=== PATIENT | female | born 1985 | race Caucasian/White ===

== ENCOUNTER → 2016-12-29 | Outpatient (CLI) | payer BC ==
[~2016-12-29] MED LIST: ASCA500 PO; ASPI-435; PRENTAB26 PO
[2016-12-29 17:05] LABS: URINE APPEARANCE CLEAR (CLEAR); URINE BILIRUBIN NEG (NEG); URINE COLOR YELLOW; URINE EPITHELIAL CELL AUTO 20-30 /lpf (0-5); URINE NITRITE NEG (NEG); URINE PH 5.5 (4.5-7.5); URINE SPECIFIC GRAVITY 1.007 (1.000-1.030); UROBILINOGEN NEG (NEG)
[2016-12-29 17:15] LABS: MANUAL MICROSCOPIC REQUIRED? NO; REVIEW REQ? NO
== END | disposition home or self-care (01) ==
LOC: C.LABSPEC 16:21
PROVIDERS: ATTEND Obstetrics & Gynecology
DX: O30.041 Twin pregnancy, dichorionic/diamniotic, first trimester (principal)

== ENCOUNTER → 2016-12-31 | Outpatient (CLI) | payer BC ==
[2017-01-04 03:15] LABS: CHLAMYDIA TRACH RNA*** NOT DETECTED (NOT DETECTED); GC (NEIS GONORRHOEAE)RNA** NOT DETECTED (NOT DETECTED)
== END | disposition home or self-care (01) ==
LOC: C.LABSPEC 15:29
PROVIDERS: ATTEND Obstetrics & Gynecology
DX: O30.041 Twin pregnancy, dichorionic/diamniotic, first trimester (principal)

== ENCOUNTER → 2016-12-31 | Outpatient (CLI) | payer BC ==
[2016-12-31 14:38] LABS: BASO % 0.3 %; BASO ABS # 0.02 K/uL (0-0.2); COMPLETE YES; EOS % 0.8 %; HEMATOCRIT 41.8 % (37-47); IG% 0.1 %; LYMPH % 28.1 %; LYMPH ABS # 2.21 K/uL (1.2-3.4); MEAN CELL VOLUME 90.9 fL (80-100); MEAN CORPUSCULAR HGB CONC 35.2 g/dl (32-36); MEAN PLATELET VOLUME 10.3 fL (7.4-10.4); MONO % 10.8 %; NEUT % 59.9 %; PLATELET COUNT 296 K/uL (130-400); WHITE BLOOD COUNT 7.86 K/uL (4.8-10.8)
== END | disposition home or self-care (01) ==
LOC: C.LAB1850 12:43
PROVIDERS: ATTEND Obstetrics & Gynecology
DX: O30.041 Twin pregnancy, dichorionic/diamniotic, first trimester (principal)

== ENCOUNTER → 2017-02-28 | Outpatient (CLI) | payer BC ==
[2017-02-28 14:13] LABS: GTGD 50 Grams
== END | disposition home or self-care (01) ==
LOC: C.LAB1850 12:10
PROVIDERS: ATTEND Obstetrics & Gynecology
DX: O30.042 Twin pregnancy, dichorionic/diamniotic, second trimester (principal)

== ENCOUNTER → 2017-03-08 | Outpatient (CLI) | payer BC ==
[2017-03-08 08:13] LABS: PATIENT HEIGHT 170.2 cm
[2017-03-08 09:46] LABS: URINE TOTAL PROTEIN 8.3 mg/dl (0-11.9)
[2017-03-08 12:22] LABS: CREATININE 0.5 mg/dl (0.6-1.2)
== END | disposition home or self-care (01) ==
LOC: C.LAB1850 08:06
PROVIDERS: ATTEND Obstetrics & Gynecology
DX: O14.10 Severe pre-eclampsia, unspecified trimester (principal)

== ENCOUNTER → 2017-05-18 | Outpatient (CLI) | payer BC ==
[2017-05-18 11:25] LABS: URINE APPEARANCE CLEAR (CLEAR); URINE BILIRUBIN NEG (NEG); URINE COLOR YELLOW; URINE EPITHELIAL CELL AUTO >30 /lpf (0-5); URINE NITRITE NEG (NEG); URINE PH 7.5 (4.5-7.5); URINE SPECIFIC GRAVITY 1.017 (1.000-1.030); UROBILINOGEN NEG (NEG)
[2017-05-18 11:28] LABS: MANUAL MICROSCOPIC REQUIRED? NO; REVIEW REQ? NO
== END | disposition home or self-care (01) ==
LOC: C.LABSPEC 11:03
PROVIDERS: ATTEND Obstetrics & Gynecology
DX: O30.042 Twin pregnancy, dichorionic/diamniotic, second trimester (principal)

== ENCOUNTER → 2017-05-18 | Outpatient (CLI) | payer BC ==
[2017-05-18 12:18] LABS: HEMATOCRIT 36.6 % (37-47)
[2017-05-18 14:02] LABS: GTGD 50 Grams
== END | disposition home or self-care (01) ==
LOC: C.LAB1850 09:19
PROVIDERS: ATTEND Obstetrics & Gynecology
DX: O30.042 Twin pregnancy, dichorionic/diamniotic, second trimester (principal)

== ENCOUNTER 2017-06-15 16:22 | Outpatient (CLI) | payer BC ==
[~2017-06-15 16:22] MED LIST changes: -ASPI-435
== END 2017-06-15 17:01 | disposition home or self-care (01) ==
LOC: C.OPB 16:22 → C.LD 16:22 → C.OPB 17:01
PROVIDERS: ATTEND Obstetrics & Gynecology
DX: O30.009 Twin pregnancy, unspecified number of placenta and unspecified number of amniotic sacs, unspecified trimester (principal); Z3A.00 Weeks of gestation of pregnancy not specified

== ENCOUNTER 2017-06-22 14:50 | Outpatient (CLI) | payer BC ==
[~2017-06-22] VITALS: Ht 170.2 cm; Wt 101.0 kg
[2017-06-22 15:44] VITALS: Ht 170.2 cm; Wt 101.0 kg
[2017-06-22] MEDS ORDERED: ASPI-435 (15:44)
== END 2017-06-22 15:20 | disposition home or self-care (01) ==
LOC: C.OPB 14:50 → C.LD 14:50 → C.OPB 15:20
PROVIDERS: ATTEND Obstetrics & Gynecology
DX: O30.009 Twin pregnancy, unspecified number of placenta and unspecified number of amniotic sacs, unspecified trimester (principal); Z3A.00 Weeks of gestation of pregnancy not specified

== ENCOUNTER 2017-06-29 16:54 | Outpatient (CLI) | payer BC ==
[~2017-06-29] VITALS: Ht 170.2 cm; Wt 102.5 kg
[~2017-06-29 16:54] MED LIST changes: -ASCA500 PO; +ASPI-435
[2017-06-29 17:13] VITALS: Ht 170.2 cm; Wt 102.5 kg
== END 2017-06-29 17:32 | disposition home or self-care (01) ==
LOC: C.OPB 16:54 → C.LD 16:54 → C.OPB 17:32
PROVIDERS: ATTEND Obstetrics & Gynecology
DX: O30.009 Twin pregnancy, unspecified number of placenta and unspecified number of amniotic sacs, unspecified trimester (principal); Z3A.00 Weeks of gestation of pregnancy not specified

== ENCOUNTER 2017-07-05 11:45 | Outpatient (CLI) | payer BC | END 2017-07-05 12:46 | disposition home or self-care (01) | LOC: C.LD 11:45 → C.OPB 11:45 | PROVIDERS: ATTEND Obstetrics & Gynecology | DX: O30.043 Twin pregnancy, dichorionic/diamniotic, third trimester (principal); Z3A.00 Weeks of gestation of pregnancy not specified ==

== ENCOUNTER → 2017-07-05 | Outpatient (CLI) | payer BC | END | disposition home or self-care (01) | LOC: C.LABSPEC 13:50 | PROVIDERS: ATTEND Obstetrics & Gynecology | DX: O30.043 Twin pregnancy, dichorionic/diamniotic, third trimester (principal) ==

== ENCOUNTER 2017-07-12 18:50 | Outpatient (CLI) | payer BC ==
[~2017-07-12] VITALS: Ht 170.2 cm; Wt 102.8 kg
[2017-07-12 19:45] VITALS: Ht 170.2 cm; Wt 102.8 kg
== END 2017-07-12 19:30 | disposition home or self-care (01) ==
LOC: C.LD 18:50 → C.OPB 18:50
PROVIDERS: ATTEND Obstetrics & Gynecology
DX: O30.009 Twin pregnancy, unspecified number of placenta and unspecified number of amniotic sacs, unspecified trimester (principal); Z3A.00 Weeks of gestation of pregnancy not specified

== ENCOUNTER 2017-07-19 14:35 | Outpatient (CLI) | payer BC ==
[~2017-07-19] VITALS: Ht 170.2 cm; Wt 104.0 kg
[~2017-07-19 14:35] MED LIST changes: -ASPI-435
[2017-07-19 15:05] VITALS: Ht 170.2 cm; Wt 104.0 kg
== END 2017-07-19 14:55 | disposition home or self-care (01) ==
LOC: C.OPB 14:35 → C.LD 14:35 → C.OPB 14:55
PROVIDERS: ATTEND Obstetrics & Gynecology
DX: O30.009 Twin pregnancy, unspecified number of placenta and unspecified number of amniotic sacs, unspecified trimester (principal); Z3A.00 Weeks of gestation of pregnancy not specified

== ENCOUNTER 2017-07-22 15:15 | Outpatient (CLI) | payer BC ==
--- NOTE | 2017-07-27 13:11 | EDITING REQUIRED CODING QUERY ---
DIAGNOSIS NEEDED To promote full compliance with coding requirements relating to patient care, physician participation is requested in all cases of chemistry physics teacher uncertainty. Please assist us with the question(s) below: Coding Question: The patient received care in labor and delivery on 07/22/17 as noted within the record. Please document the diagnosis that is being addressed by the medication/treatment. Provider Response: DIAGNOSIS: Twin WEEKS OF GESTATION: 37 6/7 weeks Thank you for your assistance, Anne-Marie Hobbs - Health Promoter
== END 2017-07-22 15:45 | disposition home or self-care (01) ==
LOC: C.OPB 15:15 → C.LD 15:15 → C.OPB 15:45
PROVIDERS: ATTEND Obstetrics & Gynecology
DX: O30.003 Twin pregnancy, unspecified number of placenta and unspecified number of amniotic sacs, third trimester (principal); Z3A.37 37 weeks gestation of pregnancy

== ENCOUNTER 2017-07-26 12:11 | Outpatient (CLI) | payer BC | END 2017-07-26 12:56 | disposition home or self-care (01) | LOC: C.OPB 12:11 → C.LD 12:12 → C.OPB 12:56 | PROVIDERS: ATTEND Obstetrics & Gynecology | DX: O30.009 Twin pregnancy, unspecified number of placenta and unspecified number of amniotic sacs, unspecified trimester (principal); Z3A.00 Weeks of gestation of pregnancy not specified ==

== ENCOUNTER 2017-07-27 07:51 | Inpatient (IN) | payer BC ==
[~2017-07-27] VITALS: Ht 170.2 cm; Wt 104.5 kg
[2017-07-27] MEDS ORDERED: LACTATED RINGER'S 1000ML 500 ML IV PRN ×2 (08:11→13:55)
[2017-07-27] MEDS ORDERED: LACTATED RINGER'S 1000ML 1,000 ML IV PRN (08:11)
[2017-07-27] MEDS ORDERED: OXYTOCIN 30 UNITS/500ML NSS IV PRN ×2 (08:15→16:45)
[2017-07-27 08:46] LABS: HEMATOCRIT 39.8 % (37-47); MEAN CELL VOLUME 95.2 fL (80-100); MEAN CORPUSCULAR HEMOGLOBIN 32.1 pg (25-34); MEAN CORPUSCULAR HGB CONC 33.7 g/dl (32-36); MEAN PLATELET VOLUME 11.1 fL (7.4-10.4); PLATELET COUNT 173 K/uL (130-400); RED BLOOD COUNT 4.18 M/uL (4.2-5.4); WHITE BLOOD COUNT 7.36 K/uL (4.8-10.8)
[2017-07-27 09:16] VITALS: Ht 170.2 cm; Wt 104.5 kg
[2017-07-27] MEDS: LACTATED RINGER'S 1000ML 1,000 ML IV SCH ×2 (09:51→18:29)
[2017-07-27] MEDS ORDERED: BUPIVACAINE 0.25% 30 ML VIAL ONE (13:00)
[2017-07-27] MEDS ORDERED: EpHEDrine SULFATE INJ 50 MG/ML AMP ONE (13:00)
[2017-07-27] MEDS ORDERED: FENTANYL 2MCG/ML ROPIV 1.25MG/ML 100ML BAG EPI ONE (13:00)
[2017-07-27] MEDS ORDERED: FENTANYL CITRATE INJ 50 MCG/1 ML 2 ML VIAL ONE (13:01)
[2017-07-27] MEDS ORDERED: NALOXONE HCL INJ 1 MG in SODIUM CHLORIDE 0.9% 1000ML 1,000 ML IV PRN (13:55)
[2017-07-27] MEDS ORDERED: EpHEDrine SULFATE INJ 50 MG/ML AMP IV PRN (14:00)
[2017-07-27] MEDS ORDERED: NALOXONE HCL INJ 0.4 MG/1 ML VIAL/CARP IV PRN (14:00)
[2017-07-27] MEDS ORDERED: DiphenhydrAMINE HCL 50 MG/ML VIAL IV PRN (14:00)
[2017-07-27] MEDS ORDERED: ONDANSETRON INJ 2 MG/ML 2 ML VIAL IV PRN (14:00)
[2017-07-27] MEDS ORDERED: FENTANYL 2MCG/ML ROPIV 1.25MG/ML 100ML BAG EPI PRN (14:00)
[2017-07-27] MEDS ORDERED: NALBUPHINE HCL INJ 10 MG/ML AMP IV PRN (14:00)
[2017-07-27] MEDS ORDERED: OXYCODONE/ACETAMINOPHEN 5-325 TAB PO PRN (16:45)
[2017-07-27] MEDS ORDERED: BENZOCAINE 20% AER SPR 82.5 GM CAN EXT PRN (16:45)
[2017-07-27] MEDS ORDERED: LANOLIN OINT EXT PRN ×2 (16:45)
[2017-07-27] MEDS ORDERED: SUPERCREAM 0.870 % 15GM JAR EXT PRN (16:45)
[2017-07-27] MEDS ORDERED: HYDROCORTISONE ACETATE 25 MG SUPP PR PRN (16:45)
--- NOTE | 2017-07-27 16:49 | Anesthesia Procedure Note ---
Anesthesia Epidural Removal Nt Date & Time Jul 27, 2017 at 16:49 Notes Mental Status: alert / awake / arousable, participated in evaluation Nausea / Vomiting: adequately controlled Pain: adequately controlled Airway Patency, RR, SpO2: stable & adequate BP & HR: stable & adequate Hydration State: stable & adequate Neuraxial Anesthesia: was administered Anesthetic Complications: no major complications apparent, pt satisfied with anesthetic care Epidural: removed without complications, with tip intact
--- NOTE | 2017-07-27 17:55 | DELIVERY SUMMARY ---
DATE OF OPERATION: 07/27/2017 PREDELIVERY DIAGNOSES: 1. A 32-year-old G4, P1-1-1-2 at 38 weeks. 2. Dye-dye twins. 3. History of preeclampsia and prior but not currently. POSTDELIVERY DIAGNOSES: Same. PROCEDURES: Spontaneous vaginal delivery and repair of first degree perineal laceration. SURGEON: Dr. Tamela Arthur. ACCOUNT SUPPORT SPECIALIST SURGEON: Dr. Barron. ESTIMATED BLOOD LOSS: 300 mL. FINDINGS: Baby A is viable female , Apgars of 8 and 9, weight 5 pound 5 ounces; baby B is viable male , Apgars of 9 and 10, weight 8 pound 5 ounces. Baby A was delivered with compound left hand. ANESTHESIA: Epidural. DESCRIPTION OF DELIVERY: The patient progressed to complete with epidural anesthesia. She then began to push. She spontaneously vaginally delivered Baby A from the cephalic presentation with the baby delivered in left occiput anterior position with a compound left hand. At the time of delivery of the head, the head and the left arm were delivered followed by the delivery of the anterior shoulder followed by the delivered of the body. The cord was doubly clamped and cut. Baby was handed off to the waiting pediatrics team. Using ultrasound guidance, the baby B was noted to be in a cephalic presentation. Baby B's amniotic membranes were ruptured for clear fluid and the head was guided down into the pelvis. The patient then began to push again and spontaneously vaginally delivered a viable male from cephalic presentation with the head in right occiput anterior position. The head delivered followed by the anterior then the posterior shoulder followed by the body. The baby was placed in mother's abdomen and a spontaneous cry was heard. The cord was doubly clamped and cut after performing delayed cord clamping with 1 minute delay. The placenta of her baby A was delivered spontaneously intact with a 3-vessel cord. This was labeled with 1 cord clamp and sent to pathology. Baby B's placenta then delivered spontaneously intact with a 3-vessel cord and was labeled with 2 plastic cord clamps. Pitocin was started. The uterus and vagina were cleared of all clots and debris. The uterus began to clamp down. Excellent hemostasis was observed. The bladder was emptied using a red rubber catheter. A first degree perineal laceration was reapproximated using 3-0 Vicryl in a running stitch. The patient and both babies tolerated the delivery well and recovered back in the labor room in stable and good condition. All sponge, instrument and needle counts were correct x2 at the conclusion of the delivery. I attest to the content of the Intraoperative Record and any orders documented therein. Any exception s are noted below.
[2017-07-27 19:20] VITALS: BP 120/74; PULSE 90; TEMP 36.6
[2017-07-27] MEDS: DOCUSATE SODIUM 100 MG CAP PO SCH (21:13)
[2017-07-27 23:45] VITALS: BP 119/75; PULSE 97; TEMP 37.2
[2017-07-28 04:10] VITALS: BP 131/87; PULSE 81; TEMP 36.5
[2017-07-28] MEDS: IBUPROFEN 600 MG TAB PO PRN ×2 (04:34→08:16)
[2017-07-28 06:27] LABS: HEMATOCRIT 37.1 % (37-47)
--- NOTE | 2017-07-28 06:47 | Progress Note ---
Subjective Jul 28, 2017. Subjective conversation w/ patient, physical exam, chart review, lab review Ambulation: limited ambulation (to bathroom thus far) Voiding: no voiding problems Diet Tolerance: Regular Diet Lochia: Small Feeding Type: Breast Feeding Pain: Notes cramping with breast feeding Comment: Found pt resting comfortably, says got some sleep overnight, and denies any acute concerns. Review of Systems Constitutional: No fever, No chills Respiratory: No cough, No shortness of breath Cardiac: No chest pain Abdomen: No nausea, No vomiting, No diarrhea Female : No dysuria Objective Vital Signs Date Time Temp Pulse Resp B/P (MAP) Pulse Ox O2 Delivery O2 Flow Rate FiO2 07/28/17 04:10 36.5 81 18 131/87 (102) Room Air 07/27/17 23:45 37.2 97 18 119/75 (90) Room Air 07/27/17 23:45 Room Air 07/27/17 19:20 Room Air 07/27/17 19:20 36.6 90 18 120/74 (89) Room Air Physical Exam General Appearance: WELL-APPEARING, WD/WN, NO APPARENT DISTRESS Respiratory/Chest: lungs clear, normal breath sounds, no respiratory distress Cardiovascular: regular rate, rhythm, no murmur Abdomen: normal bowel sounds, non tender, soft Fundus: Firm, Non-Tender, Relation to Umbilicus (approx two down) Extremities: normal range of motion, no calf tenderness, + pedal edema (trace bilaterally) Laboratory Results Last 24 Hours Test 07/27/17 08:24 07/28/17 06:16 White Blood Count 7.36 K/uL Red Blood Count 4.18 M/uL Hemoglobin 13.4 g/dL 12.9 g/dL Hematocrit 39.8 % 37.1 % Mean Corpuscular Volume 95.2 fL Mean Corpuscular Hemoglobin 32.1 pg Mean Corpuscular Hemoglobin Concent 33.7 g/dl RDW Standard Deviation 49.9 fL RDW Coefficient of Variation 14.5 % Platelet Count 173 K/uL Mean Platelet Volume 11.1 fL Assessment and Plan Post- Day#: 1 Continue Routine Care: 32F s/p for di-di twins, now PPD #1. - Blood type O positive. GBS negative. Rubella immune. - Vital signs reviewed and stable. - Pain controlled with motrin. - No leg swelling or tenderness on calf palpation. Encourage ambulation. - Encourage breast feeding. - Hemoglobin pre-delivery 13.4, post-delivery 12.9. Bleeding has improved. Continue to monitor clinically. - Continue post-vaginal delivery care. - Pt agreed with above plan, all current questions answered. Kwame Gonzalez MD, PGY1 Military Logistics Specialist Physician Supervision Note: I was present with Dr. Gonzalez during the history and exam. I discussed the case with the resident and agree with the findings and plan as documented in the note. Any exceptions or clarifications are listed here: PPD#1 doing well. Routine care. Documented By: Tamela Arthur Resident Tracking Resident Involvement: Resident Care Provided Care Provided: OB Delivery (OB rounds)
[2017-07-28 07:40] VITALS: BP 116/78; PULSE 91; TEMP 36.8; O2SAT 98
[2017-07-28 07:48] VITALS: O2SAT 98
[2017-07-28] MEDS ORDERED: PRENATAL VITAMIN TAB PO SCH (08:00)
--- NOTE | 2017-07-28 08:13 | Medical Student: [facility] ---
Med Student [facility] Progress Nt Date of Service Jul 28, 2017. Subjective conversation w/ patient, conversation w/ family, physical exam, chart review, lab review, review of studies, review of inpatient medication list Ambulation: limited ambulation (to and from bathroom, not around hallways yet) Voiding: no voiding problems Passing Gas: Yes Diet Tolerance: Regular Diet Lochia: Small Feeding Type: Breast Feeding Pain: "discomfort" in pelvic area Notes: Speaking with Mrs. Oneal this morning, she reports "feeling fine," and pleased with the amount of sleep that she got. She reports a small amount of vaginal bleeding that has improved since yesterday, but "picks up" when she breastfeeds. She was educated that this is not unusual. Review of Systems Constitutional: No fever, No chills Respiratory: No cough, No wheezing, No shortness of breath Cardiac: No chest pain, No edema Abdomen: No pain, No nausea, No vomiting Female : + problem reported (pelvic discomfort and small amount of vaginal bleeding), No dysuria Objective Vital Signs Date Time Temp Pulse Resp B/P (MAP) Pulse Ox O2 Delivery O2 Flow Rate FiO2 07/28/17 07:48 98 Room Air 07/28/17 07:40 36.8 91 18 116/78 (91) 98 Room Air 07/28/17 04:10 36.5 81 18 131/87 (102) Room Air 07/27/17 23:45 37.2 97 18 119/75 (90) Room Air 07/27/17 23:45 Room Air 07/27/17 19:20 Room Air 07/27/17 19:20 36.6 90 18 120/74 (89) Room Air Physical Exam General Appearance: WELL-APPEARING, WD/WN Respiratory/Chest: lungs clear, normal breath sounds Cardiovascular: regular rate, rhythm, no gallop, no murmur Abdomen: non tender, soft Fundus: Non-Tender, Relation to Umbilicus (2 fingers below umbilicus) Extremities: no calf tenderness, + pertinent finding (slight bilateral Lower extremity edema) Blood Type: O positive Rubella: Immune GBS: negative Afebrile Laboratory Results Last 24 Hours Test 07/27/17 08:24 07/28/17 06:16 White Blood Count 7.36 K/uL Red Blood Count 4.18 M/uL Hemoglobin 13.4 g/dL 12.9 g/dL Hematocrit 39.8 % 37.1 % Mean Corpuscular Volume 95.2 fL Mean Corpuscular Hemoglobin 32.1 pg Mean Corpuscular Hemoglobin Concent 33.7 g/dl RDW Standard Deviation 49.9 fL RDW Coefficient of Variation 14.5 % Platelet Count 173 K/uL Mean Platelet Volume 11.1 fL Medications Current Inpatient Medications Medications (Trade) Dose Ordered Sig/Miguel Route Start Time Stop Time Status Last Admin Dose Admin Lactated Ringer's 1,000 ml @ 125 mls/hr Q8H IV 07/27/17 08:11 07/29/17 08:10 07/27/17 18:29 125 MLS/HR Lactated Ringer's 500 ml @ 999 mls/hr Q31M PRN IV 07/27/17 08:11 08/26/17 08:10 Oxytocin (Pitocin IV) 30 units UD PRN IV 07/27/17 16:45 08/26/17 16:44 07/27/17 18:34 30 UNITS Benzocaine (Dermoplast Aero Spr) 1 appln PRN PRN EXT 07/27/17 16:45 08/26/17 16:44 07/27/17 19:34 1 APPLN Cocaine HCl (Supercream 0.870% Cr) BID PRN EXT 07/27/17 16:45 08/10/17 16:44 Hydrocortisone Acetate (Anusol Hc Supp) 25 mg BID PRN IN 07/27/17 16:45 08/26/17 16:44 Lanolin (Lanolin Oint) PRN PRN EXT 07/27/17 16:45 08/26/17 16:44 Prenat Multivit/ Software Packager/Iron/Folic Ac ( Vitamin Tab) 1 tab DAILY PO 07/28/17 08:00 08/27/17 07:59 Ibuprofen (Motrin Tab) 600 mg Q4H PRN PO 07/27/17 16:45 08/26/17 16:44 07/28/17 04:34 600 MG Oxycodone/ Acetaminophen (Percocet 5-325mg Tab) 1 tab Q4H PRN PO 07/27/17 16:45 08/10/17 16:44 Bisacodyl (Dulcolax Tab) 5 mg 20 PO 07/28/17 20:00 07/28/17 20:01 Bisacodyl (Dulcolax Supp) 10 mg DAILY PRN IN 07/29/17 07:00 Docusate Sodium (coLACE CAP) 100 mg BID PO 07/27/17 20:00 08/26/17 19:59 07/27/17 21:13 100 MG Assessment and Plan Post- Day Number: 1 Continue Routine Care: Assessment & Plan -Vital signs are within normal limits: (T36.5, P81, R18, BP 116/78, Sat 98 on room air) -Hbg is stable, predelivery: 13.4, postdelivery 12.9 -Continue to monitor her bleeding and her recovery from a 1st degree perineal laceration -Pain is controlled with Motrin PRN -Encourage ambulation and -continue to provide routine post vaginal delivery care
[2017-07-28] MEDS: DOCUSATE SODIUM 100 MG CAP PO SCH (08:16)
[2017-07-28 12:15] VITALS: BP 120/79; PULSE 99; TEMP 36.6; O2SAT 99
[2017-07-28 15:45] VITALS: BP 114/77; PULSE 96; TEMP 37.3
--- NOTE | 2017-07-28 16:47 | Discharge Instructions ---
Discharge Instructions Date of Service Jul 28, 2017. Admission Reason for Admission: Induction For Twins Discharge Discharge Diagnosis / Problem: Twin prgnancy, vaginally delivered Discharge Goals Goal(s): Routine recovery after delivery Activity Recommendations Activity Limitations: per Instructions/Follow-up section . Instructions / Follow-Up Instructions / Follow-Up ACTIVITY RECOMMENDATIONS: * Gradual return to full activity over the next 2-3 weeks. * No lifting - nothing heavier than baby over the next 2-3 weeks. * Do not engage in vigorous exercise, sexual activity or sports until cleared by your physician. * Do not drive or operate any motorized equipment until cleared by your physician. * You may shower/bathe daily. MEDICATIONS: For discomfort or pain, you may use Acetaminophen (Tylenol), Ibuprofen (Advil), or Naproxen (Aleve) following the package directions. For constipation you may use Colace following the package directions. BREAST CARE: If you are not breast feeding: * Wear a supportive bra 24 hours a day for one to two weeks. * Avoid stimulating your breasts and nipples as much as possible during the first few weeks after delivery. * When taking a shower, have the warm water hit your back, not breasts. * When your breasts feel full, apply ice packs. Usually three to four times a day helps ease the discomfort. * Take a mild pain medication (Tylenol / Motrin) when you are uncomfortable. If breast feeding: * Use breast milk to lubricate nipples. Lansinoh cream may be used for sore nipples. You do not need to remove cream prior to breast feeding. If using a different brand of cream, check the label for directions regarding removal of cream prior to nursing. * Wear a supportive bra. * If having problems with breasts or breast feeding, call a dietitian consultant or your health care provider. EPISIOTOMY CARE: After delivery, if you have an episiotomy (stitches), the following steps will ease discomfort and aid healing. * For the first 24 hours after delivery, place ice packs next to your episiotomy to help reduce swelling. * After the first 24 hour-period, sitz baths, either portable or in the tub, are suggested. A shower with a shower arm sprayed over the episiotomy may be comforting. * Dona care should be done after each voiding and bowel movement. Squirt warm water from a plastic bottle over the perineum (region of the body between the anus and urinary opening) and pat dry. * Use Dermoplast to ease discomfort. Shake container. [place] directly over the episiotomy. Place a Tucks on a clean sanitary pad next to your episiotomy. SPECIAL CARE INSTRUCTIONS: When you are discharged from the hospital, it is important for you to follow the instructions listed below: * During the first week at home, you should be able to care for yourself and your baby. In addition, the usual light household activities are encouraged. * Limit your activities to the way you feel. Do not try to clean the house or move furniture. Be sensible. * If you actively engage in sports and have done so up until the time of your delivery, you may resume these activities as soon as you feel able. This may take up to one month or even longer. Use good judgment. * Continue to take your vitamins for at least six weeks after the of your baby. * Your diet need not be limited unless you were on a special diet before your delivery. Breast-feeding mothers need around 2500 calories per day and at least 64-80 ounces of fluid per day (8 to 10 glasses). * You should eat foods from the four major food groups. Crash diets or fad diets are to be avoided. Eating lean meats, fresh fruits and vegetables, low-fat dairy products, high fiber foods and a regular exercise program, will help you get back to your pre- weight without putting your health at risk. * Constipation is sometimes a problem after delivery. Take a mild laxative as needed. If breast feeding, Milk of Magnesia is acceptable to use. You may use a suppository or Fleets enema if no episiotomy. * A daily shower or tub bath is suggested. Be sure to thoroughly and gently dry the perineum. * A bloody vaginal discharge will usually continue until around four weeks post . A small amount of bleeding may continue for as long as six weeks. Vaginal discharge changes from the bright red bleeding after delivery to pink then brownish and finally yellowish-pink before becoming white and disappearing. * Bleeding may increase with activity. Your first period may come in 4-8 weeks. If you are breast feeding, your period may be delayed even longer. * [place] (sex) can begin whenever both you and your partner feel comfortable and do not have any form of genital infection. It is recommended that you wait at least six weeks for internal and external healing to occur. If you have questions, please talk to your health care practitioner. A condom should be used to prevent infection and . * Foreplay, gentle intercourse and lubrication is very important the first several times to prevent pain. A water-based lubricant such as K-Y jelly or Astroglide may be used. * If you have RH negative blood and your baby is RH positive, you will receive RHOGAM by injection prior to discharge. The nurse will give you a card to keep with you that has the date and place that you received RHOGAM after delivery. * During your care, you had a Rubella screen done to check for the presence of rubella antibodies in your blood. If your test was negative, you will receive a Rubella vaccine prior to discharge. This vaccine may cause a fever, soreness at the injection site and flu-like symptoms. If these symptoms persist, notify your health care practitioner. is not advised for one month after a Rubella vaccine. * Verbalizes understanding of car seat law as reviewed with patient nursing. * Car Seat hand-out given and reviewed with patient by nursing. * Shaken baby information reviewed with patient by nursing. Call you doctor if: * Heavy bleeding (saturating several pads an hour) or passing clots the size of your fist. * A fever >101 degrees F (38.3 degrees C) on two occasions four hours apart and /or chills. * Unusual pain in the pelvic or vaginal areas. * "Baby Blues" lasting longer than two weeks. If you have any questions or concerns, call your health care practitioner at . FOLLOW UP VISIT: * Please call the office at to schedule a 6 week examination. It is important you keep this appointment. It is important for you to make arrangements for either yearly or twice yearly check-ups thereafter. Current Hospital Diet Patient's current hospital diet: Regular OB Diet Discharge Diet Recommended Diet: Regular Diet Pending Studies Studies pending at discharge: no Medical Emergencies . Who to Call and When: Medical Emergencies: If at any time you feel your situation is an emergency, please call 911 immediately. . Non-Emergent Contact Non-Emergency issues call your: Primary Care Provider . . "Provider Documentation" section prepared by Shaina Barron. . VTE Core Measure Inpt VTE Proph given/why not?: Treatment not indicated
[2017-07-28 18:20] VITALS: BP_DIAS 77; PULSE 96; TEMP 37.3
[2017-07-28] MEDS ORDERED: BISACODYL 5 MG TABEC PO SCH (20:00)
[2017-07-29] MEDS ORDERED: BISACODYL 10 MG SUPP PR PRN (07:00)
== END 2017-07-28 18:20 | disposition home or self-care (01) | DRG 775 ==
LOC: C.LD 07:51 → C.OBG 19:15
PROVIDERS: ADMIT Obstetrics & Gynecology; ATTEND Obstetrics & Gynecology
PROC: 0HQ9XZZ Repair Perineum Skin, External Approach (ICD-10-PCS; principal; 2017-07-27)
PROC: 10E0XZZ Delivery of Products of Conception, External Approach (ICD-10-PCS; principal; 2017-07-27)
PROC: 3E033VJ Introduction of Other Hormone into Peripheral Vein, Percutaneous Approach (ICD-10-PCS; principal; 2017-07-27)
DX: O30.043 Twin pregnancy, dichorionic/diamniotic, third trimester (principal); O32.6XX1 Maternal care for compound presentation, fetus 1; O70.0 First degree perineal laceration during delivery; Z3A.38 38 weeks gestation of pregnancy; Z37.2 Twins, both liveborn

== ENCOUNTER 2019-03-04 15:08 | Inpatient (IN) ==
[2019-03-04] MEDS ORDERED: OXYTOCIN 30 UNITS/500 ML BAG IV PRN ×2 (15:12→20:33)
[2019-03-04] MEDS ORDERED: LACTATED RINGER'S 1,000 ML IV PRN (15:12)
--- NOTE | 2019-03-04 15:13 | History & Physical Report ---
Date of Service March 04, 2019 G5 with 4 prior vaginal deliveries at 41 weeks presents in active labor yusra every 2 to 8 minutes. Her cervix is 5 cm per nursing and patient requests an epidural she is group B strep negative record reviewed Assessment & Plan (1) Normal labor: History of Present Illness Primary Care Provider: Mayela Ness MD Allergies Allergy/AdvReac Type Severity Reaction Status Date / Time No Known Allergies Allergy Unverified 03/04/19 15:13
[2019-03-04] MEDS ORDERED: fentaNYL citrate 100 MCG/2 ML VIAL ONE (15:20)
[2019-03-04] MEDS ORDERED: BUPIVACAINE 0.25% 30 ML VIAL ONE (15:20)
[2019-03-04] MEDS ORDERED: fentaNYL 2MCG/ML ROPIV 1.25MG/ML 100 ML BAG EPI ONE (15:20)
[2019-03-04] MEDS ORDERED: ePHEDrine sulfate 50 MG/ML AMP ONE (15:20)
[2019-03-04 15:36] LABS: Hematocrit (blood only) 37.2 % (37-47); Hemoglobin 12.8 g/dL (12.0-16.0); Mean Corpuscular Volume 92.8 fL (80-100); Mean Platelet Volume 10.6 fL (7.4-10.4); Platelet Count 155 K/uL (130-400); RDW Coefficient of Variation 14.3 % (11.5-14.5); RDW Standard Deviation 47.7 fL (36.4-46.3); Red Blood Count 4.01 M/uL (4.2-5.4); White Blood Count 7.95 K/uL (4.8-10.8)
[2019-03-04 15:50] LABS: Mean Corpuscular Hgb Conc 34.4 g/dL (32-36)
--- NOTE | 2019-03-04 16:13 | Anesthesiology Consultation ---
Date of Service March 04, 2019 Assessment & Plan (1) Encounter for pre-operative examination: Chart Review Chart Review: Acceptable Risk for Labor Epidural History Allergies Allergy/AdvReac Type Severity Reaction Status Date / Time No Known Allergies Allergy Unverified 03/04/19 15:13 Medications Home Medications Medication Instructions Recorded Confirmed Last Taken aspirin 81 mg PO DAILY 03/04/19 03/04/19 03/02/19 20:30 vit-iron fum-folic ac 1 tab PO HS 03/04/19 03/04/19 03/03/19 20:30 [ Vitamin with Minerals] Active Medications Generic Name Dose Route Start Last Admin Trade Name Freq PRN Reason Stop Dose Admin Lactated Ringer's 1,000 mls @ 125 mls/hr 03/04/19 15:12 03/04/19 15:15 Lr IV 03/06/19 15:11 125 mls/hr .Q8H PRN Administration L&D Protocol Protocol Past Medical History Medical History GERD (gastroesophageal reflux disease) Social History Hx Alcohol Use: No Physical Exam Vital Signs Last Vital Signs Pulse 100 H 03/04/19 16:10 BP 136/86 03/04/19 15:18 Pulse Ox 94 03/04/19 16:10
[2019-03-04] MEDS ORDERED: NALOXONE HCL 1 MG in SODIUM CHLORIDE 0.9% 1000ML 1,000 ML IV PRN (17:19)
[2019-03-04] MEDS ORDERED: ONDANSETRON INJ 2 MG/ML 2 ML VIAL IV PRN (17:19)
[2019-03-04] MEDS ORDERED: ePHEDrine sulfate 50 MG/ML AMP IV PRN (17:19)
[2019-03-04] MEDS ORDERED: DiphenhydrAMINE HCL 50 MG/ML VIAL IV PRN (17:19)
[2019-03-04] MEDS ORDERED: NALOXONE HCL 0.4 MG/1 ML VIAL/CARP IV PRN (17:19)
[2019-03-04] MEDS ORDERED: fentaNYL 2MCG/ML ROPIV 1.25MG/ML 100 ML BAG EPI PRN (17:19)
[2019-03-04] MEDS ORDERED: NALBUPHINE HCL INJ 10 MG/ML AMP IV PRN (17:19)
--- NOTE | 2019-03-04 18:54 | Procedure Note ---
Vaginal Delivery Summary Date of Service March 04, 2019 Spontaneous vaginal delivery patient did receive epidural heart rate category 1. Baby delivered in occiput anterior position there was a tight nuchal cord which had to be clamped and cut after delivery of the head fluid was clear easy delivery with no excessive force. Live vigorous female cord gases obtained cord blood obtained placenta removed with traction IV Pitocin started there was no tearing estimate blood loss 350 mL sponge management counts correct
[2019-03-04 19:16] LABS: Base Excess Cord Arterial Bld -1.2 mEq/L (-9-1.8); CO2 Cord Arterial Blood 51 mmHg (39.1-73.5); HCO3 Cord Arterial Blood 26 mmol/L (19.7-28.5); pH Cord Arterial Blood 7.32 (7.1-7.38)
[2019-03-04 19:20] LABS: Base Excess Cord Venous Blood -1.1 mEq/L (-7.7-1.9); Cord Venous Blood HCO3 23 mmol/L (18.4-26.8); Cord Venous Blood PCO2 37 mmHg (30.4-57.2); Cord Venous Blood PO2 33 mmHg (14.1-43.3); Cord Venous Blood pH 7.41 (7.20-7.44)
[2019-03-04] MEDS ORDERED: SUPERCREAM 0.870% 15 GM JAR EXT PRN (20:33)
[2019-03-04] MEDS ORDERED: ACETAMINOPHEN 325 MG TAB PO PRN (20:33)
[2019-03-04] MEDS ORDERED: HYDROCORTISONE ACETATE 25 MG SUPP PR PRN (20:33)
[2019-03-04] MEDS ORDERED: OXYCODONE/ACETAMINOPHEN 5mg/325mg TAB PO PRN (20:33)
[2019-03-04] MEDS ORDERED: DIPHTHERIA/TETANUS/PERTUSSIS 0.5 ML SYR/VIAL IM ONE (20:33)
[2019-03-04] MEDS ORDERED: BENZOCAINE 20% AER SPR 82.5 GM CAN EXT PRN (20:33)
[2019-03-04] MEDS: DOCUSATE SODIUM 100 MG CAP PO SCH (21:23)
--- NOTE | 2019-03-04 22:20 | Anesthesia Procedure Note ---
Date of Service March 04, 2019 Anesthesia Post Epidural Note Vital Signs Vital Signs: Temp Pulse Pulse Resp BP BP Pulse Ox 03/04/19 21:30 36.7 C 74 18 126/70 03/04/19 21:00 107 H 20 127/65 03/04/19 20:57 107 H 127/65 03/04/19 20:37 106 H 138/84 03/04/19 20:30 112 H 18 125/70 03/04/19 20:17 112 H 125/70 03/04/19 20:00 18 03/04/19 19:57 120 H 138/72 03/04/19 19:46 118 H 138/63 03/04/19 19:45 18 03/04/19 19:36 108 H 126/55 L 03/04/19 19:30 18 03/04/19 19:26 112 H 131/60 03/04/19 19:16 120 H 131/57 L 03/04/19 19:15 18 03/04/19 19:06 111 H 130/69 03/04/19 19:00 37.3 C 18 03/04/19 18:56 117 H 142/72 H 03/04/19 18:51 115 H 94 03/04/19 18:46 136 H 170/83 H 93 03/04/19 18:40 117 H 91 03/04/19 18:39 115 H 88 L 03/04/19 18:35 108 H 89 L 03/04/19 18:34 116 H 94 03/04/19 18:31 111 H 131/85 03/04/19 18:29 104 H 97 03/04/19 18:24 105 H 98 03/04/19 18:19 97 H 96 03/04/19 18:16 99 H 138/85 03/04/19 18:14 37.0 C 90 20 97 03/04/19 18:09 99 H 97 03/04/19 18:04 112 H 94 03/04/19 18:02 104 H 125/60 03/04/19 17:59 109 H 98 03/04/19 17:54 99 H 96 03/04/19 17:49 106 H 96 03/04/19 17:47 98 H 128/59 L 03/04/19 17:44 107 H 96 03/04/19 17:39 109 H 96 03/04/19 17:34 89 96 03/04/19 17:31 88 133/78 03/04/19 17:29 91 H 96 03/04/19 17:24 89 95 03/04/19 17:19 91 H 95 03/04/19 17:15 83 133/73 03/04/19 17:14 88 97 03/04/19 17:10 92 H 132/66 03/04/19 17:09 99 H 95 03/04/19 17:05 96 H 133/58 L 03/04/19 17:04 99 H 96 03/04/19 17:00 110 H 129/57 L 03/04/19 16:59 108 H 97 03/04/19 16:57 104 H 122/60 03/04/19 16:55 102 H 116/59 L 03/04/19 16:54 101 H 97 03/04/19 16:53 98 H 110/53 L 03/04/19 16:50 106 H 113/56 L 03/04/19 16:49 115 H 97 03/04/19 16:44 122 H 122/71 94 03/04/19 16:42 116 H 119/67 03/04/19 16:39 116 H 95 03/04/19 16:38 98 H 137/87 03/04/19 16:37 103 H 133/85 03/04/19 16:35 101 H 139/83 03/04/19 16:34 103 H 95 03/04/19 16:33 99 H 137/93 03/04/19 16:30 109 H 148/91 H 03/04/19 16:29 115 H 129/85 96 03/04/19 16:24 104 H 95 03/04/19 16:23 104 H 93 03/04/19 16:19 94 H 95 03/04/19 16:15 98 H 94 03/04/19 16:14 104 H 95 03/04/19 16:10 100 H 94 03/04/19 16:09 103 H 95 03/04/19 15:37 99 H 98 03/04/19 15:32 107 H 96 03/04/19 15:27 105 H 96 03/04/19 15:18 102 H 136/86 Pain Intensity Abdomen: Pain Intensity: 0 Notes Mental Status: alert / awake / arousable and participated in evaluation Nausea / Vomiting: adequately controlled Pain: adequately controlled Airway Patency, RR, SpO2: stable & adequate BP & HR: stable & adequate Hydration State: stable & adequate Neuraxial Anesthesia: was administered and sensory block is resolving Anesthetic Complications: no major complications apparent and Pt Satisfied with anesthetic care Epidural: Removed without complications and With tip intact
[2019-03-05 07:04] LABS: Hematocrit (blood only) 36.5 % (37-47); Hemoglobin 12.4 g/dL (12.0-16.0); Mean Corpuscular Volume 93.1 fL (80-100); Mean Platelet Volume 10.7 fL (7.4-10.4); Platelet Count 143 K/uL (130-400); RDW Coefficient of Variation 14.5 % (11.5-14.5); RDW Standard Deviation 48.3 fL (36.4-46.3); Red Blood Count 3.92 M/uL (4.2-5.4); White Blood Count 7.95 K/uL (4.8-10.8)
--- NOTE | 2019-03-05 07:11 | Obstetrical Progress Note ---
Date of Service <Adrián Aranda MD - Last Filed: 03/05/19 07:11> March 05, 2019 Assessment & Plan <Adrián Aranda MD - Last Filed: 03/05/19 07:11> (1) (spontaneous vaginal delivery): 33 year old day 1 s/p at 41 weeks 0 days Vital Signs Reviewed and WNL Pain well controlled Hemoglobin 12.8 pre delivery pending post op Blood type O+, GBS -, Rubella Immune Patient ambulating and breast feeding well Went over discharge instructions Subjective <Adrián Aranda MD - Last Filed: 03/05/19 07:11> Ambulation: ambulating normally Voiding: no voiding problems Passing Gas:: Yes Diet Tolerance:: regular diet Lochia:: Small Feeding Type:: breast feeding Current Pain Level(1-10): 2 Ms Oneal is doing very well, she has no current complaints other than some crampy abdominal pain while breast feeding. Constitutional: no fever and no chills Respiratory: no cough and no dyspnea Cardiovascular: no chest pain, no dyspnea and no calf pain Gastrointestinal: no nausea and no vomiting Physical Exam <Adrián Aranda MD - Last Filed: 03/05/19 07:11> Vital Signs (Past 24 Hours) Last Vital Signs Temp 36.8 C 03/05/19 04:39 Pulse 87 03/05/19 04:39 Resp 20 03/05/19 04:39 BP 132/80 03/05/19 04:39 Pulse Ox 94 03/04/19 18:51 Constitutional well developed, well nourished, cooperative and comfortable Respiratory normal respiratory effort, lungs clear to auscultation Cardiovascular Rate/Rhythm: regular rate and regular rhythm Heart Sounds: no click, no gallop, no murmur and no cardiac rub Extremities: no calf tenderness Gastrointestinal (Abdomen) Percussion/Palpation: abdomen soft; abdomen nontender Genitourinary OB Exam Abdomen: + fundal height Fundus: + firm and + relation to umbilicus (1 cm below umbilicus); not tender <Suman Burr MD, FACOG - Last Filed: 03/05/19 07:15> Co-Signing Physician Notes Resident Physician Supervision Note: I was present with [Name of resident] during the history and exam. I discussed the case with the resident and agree with the findings and plan as documented in the note. Any exceptions or clarifications are listed here: [None] Documented By: Suman Burr MD, FACOG Resident Activity Tracking <Adrián Aranda MD - Last Filed: 03/05/19 07:11> Resident Involvement: Resident Care Provided Care Provided: OB Delivery
[2019-03-05] MEDS: DOCUSATE SODIUM 100 MG CAP PO SCH (08:26)
[2019-03-05] MEDS ORDERED: PRENATAL VITAMIN 1 TAB PO SCH (09:00)
[2019-03-05] MEDS: IBUPROFEN 600 MG TAB PO PRN ×2 (12:08→19:22)
[2019-03-05] MEDS ORDERED: BISACODYL 5 MG TABEC PO SCH (20:00)
[2019-03-06] MEDS ORDERED: BISACODYL 10 MG SUPP PR PRN (09:00)
== END 2019-03-05 20:40 | disposition home or self-care (01) | DRG 807 ==
LOC: OPB 15:08 → 4S1 15:09 → 4S2 21:45

== ENCOUNTER 2022-07-20 07:51 | Inpatient (IN) ==
[2022-07-20] MEDS ORDERED: OXYTOCIN 30 UNITS/500 ML BAG IV PRN ×3 (08:11→14:59)
[2022-07-20] MEDS ORDERED: LIDOCAINE 1% LOCAL 20 ML VIAL INFIL PRN (08:11)
[2022-07-20] MEDS ORDERED: LACTATED RINGER'S 1,000 ML IV PRN (08:11)
[2022-07-20 08:26] LABS: Hematocrit (blood only) 36.7 % (34.1-44.9); Hemoglobin 13.1 g/dl (12.0-16.0); Mean Corpuscular Hemoglobin 32.8 pg (25.0-34.0); Mean Corpuscular Hgb Conc 35.7 g/dL (32.0-36.0); Mean Platelet Volume 10.5 fL (9.4-12.3); Platelet Count 164 K/uL (130-400); RDW Coefficient of Variation 14.1 % (11.5-14.5); RDW Standard Deviation 46.7 fL (36.4-46.3); Red Blood Count 3.99 M/uL (3.93-5.22); White Blood Count 6.88 K/ul (4.8-10.8)
[2022-07-20] MEDS ORDERED: SODIUM CHLORIDE 0.9% 250 ML IV PRN (08:45)
--- NOTE | 2022-07-20 08:46 | History & Physical Report ---
Date of Service July 20, 2022 Assessment & Plan (1) History of severe pre-eclampsia: Plan: induction. Cx 3-4. Pit. Admission and Anticipated Discharge Date Admission Date: July 20, 2022 History of Present Illness Primary Care Provider: Mayela Ness MD Current Estimate 07/19/22 LMP (Certain) 40w 0d LMP: 10/12/21 : 6 Full term: 4 Premature: 1 Total Number of Induced Abortions: 0 Total Number of Spontaneous Abortions: 1 Ectopics: 0 Multiple births: 1 Number of Living Children: 5 and Delivery Plans AMA Weekly NST's @ 36 weeks Hx preeclampsia with delivery @ 36 weeks-first start baby asa at 16 akh Allergies Allergy/AdvReac Type Severity Reaction Status Date / Time No Known Allergies Allergy Verified 07/20/22 08:11 Home Medications Medication Instructions Recorded Confirmed Type prenat.vits,barrera,tuc-asjq-hyith 1 tab PO DAILY 12/11/21 07/20/22 History Patient History Medical History History of chicken pox History of severe pre-eclampsia Obesity Umbilical hernia UTI (urinary tract infection) Surgical History H/O dilation and curettage H/O umbilical hernia repair (04/16/20) Hx of oral surgery Family History Grandmother (Maternal) Breast cancer Grandmother (Paternal) Breast cancer Father Heart disease Dyslipidemia Mother Hypertension Other Cancer Denies family history of Ovarian cancer Colorectal cancer Social History (Updated 07/20/22 @ 08:10 by Renay Toussaint, JOSE) Smoking Status: Never smoker Second Hand Exposure: No; Hx Alcohol Use: No Hx Substance Use: No Preferred Language: Syriac Communication Ability: Effective Visual Impairment: No Limitations Hearing Ability: Normal 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 Beliefs That Will Affect Care: None marital status: marital status details: Garret Oneal ([phone] Current Living Situation: Spouse and Family Current Living Situation Comment: lives with spouse, 5 children, dogs current occupational status: employed current occupation: Intervention Specialist teacher[employer] How many Children do You have: 5 Feels Safe at Home: Yes Safety Concerns: Feels Safe At This Time Childhood Exposure to Second-Hand Smoke: No caffeine: Yes during the past year weight has: remained stable Dental Care, Regularly: Yes Physical Activity Frequency: Daily Seatbelt Use: always Sunscreen Use: Yes Assistive Devices: None Review of Systems as per Subjective / HPI Physical Exam Constitutional: WD/WN, vitals as above well developed and well nourished Respiratory: normal respiratory effort, lungs clear to auscultation normal respiratory effort Cardiovascular: RRR, no murmur, no edema Gastrointestinal (Abdomen): normal bowel sounds, soft, nontender, no hepatosplenomegaly Results & Data ([facility]) Vital Signs (Past 12 Hours) Vital Signs Temp Pulse Resp BP 07/20/22 08:07 99 H 119/78 07/20/22 08:07 99.0 F 18 Coding Level of Care Code None Diagnoses History of severe pre-eclampsia Z87.59
--- NOTE | 2022-07-20 14:58 | Delivery Summary ---
Vaginal Delivery Summary Date of Service July 20, 2022 Vaginal Delivery Summary induction for post datesPitocin and then artificial rupture of membranes performed. Patient was COVID-negative she rapidly progressed to fully dilated and pushed over several contractions baby in occiput anterior position she had no epidural baby was delivered by gentle traction releasing the anterior shoulder no excessive force used live vigorous male cord clamped cord blood obtained placenta removed with gentle traction IV Pitocin started a very small tear was repaired with a single simple interrupted suture first-degree tear estimated blood loss 200 mL
[2022-07-20] MEDS ORDERED: BENZOCAINE 20% AER SPR 82.5 GM CAN EXT PRN (14:59)
[2022-07-20] MEDS ORDERED: HYDROCORTISONE ACETATE 25 MG SUPP PR PRN (14:59)
[2022-07-20] MEDS ORDERED: DIPHTHERIA/TETANUS/PERTUSSIS 0.5 ML SYR/VIAL IM ONE (14:59)
[2022-07-20] MEDS ORDERED: bisacodyL 10 MG SUPP PR PRN (14:59)
[2022-07-20] MEDS ORDERED: ACETAMINOPHEN 325 MG TAB PO PRN (14:59)
[2022-07-20] MEDS: DOCUSATE SODIUM 100 MG CAP PO SCH (20:40)
--- NOTE | 2022-07-21 06:21 | Obstetrical Progress Note ---
Date of Service <Mayra Orourke DO Chloe - Last Filed: 07/21/22 06:37> July 21, 2022 Assessment & Plan <Mayra LujanDO pascual - Last Filed: 07/21/22 06:37> (1) care following vaginal delivery: Patient is PPD 1 s/p and doing well. - Eating well, voiding well, ambulating well - Vitals reviewed and within normal limits - Pain well controlled with analgesics - OOB, ambulation, diet progression as tolerated - Blood type: O+, GBS neg, rubella immune - Plan to discharge today - After discharge, 6 week follow up with Dr. Burr <Suman Burr MD, FACOG - Last Filed: 07/21/22 07:23> (1) care following vaginal delivery: Subjective <Mayra LujanDO pascual - Last Filed: 07/21/22 06:37> Patient is a 37 yo female who is now PPD #1 following spontaneous vaginal delivery at 40+1 weeks. Reports feeling well this morning. She endorses abdominal cramping but 0/10 pain this morning well managed on analgesics. Voidi ng without issue. Tolerating regular meals overnight and able to ambulate some. She has passed gas. Persistent lochia with some improvement this morning. Currently breast feeding. Review of Systems Denies fever, chills, sweats. Denies SOB, difficulty breathing, chest pain, palpitations, and chest pressure. Denies breast pain. Denies dysuria. Denies headache or changes in vision. Physical Exam <Mayra RuelasKelly Corona DO - Last Filed: 07/21/22 06:37> General: Alert and oriented. No acute distress. CV: Regular rate and rhythm. No murmurs. Respiratory: CTA bilaterally. No rhonchi, wheezes, or crackles. No increased work of breathing. Abdomen: Positive bowel sounds. Soft, nontender, non distended. Uterus: Fundus firm and palpable 4 cm below the umbilicus. Lower extremities: No LE edema. No deep calf pain. Ashely's negative bilaterally. Results & Data ([facility]) <Mayra Sharad Corona DO - Last Filed: 07/21/22 06:37> Vital Signs (Past 12 Hours) Vital Signs Temp Pulse Resp BP Pulse Ox O2 Del Method 07/21/22 03:50 36.8 C 90 18 140/87 98 Room Air 07/20/22 23:20 36.8 C 83 18 133/81 97 Room Air 07/20/22 20:15 37.1 C 85 18 130/84 98 Room Air <Suman Burr MD, FACOG - Last Filed: 07/21/22 07:23> Co-Signing Physician Notes Resident Physician Supervision Note: I was present with [Name of resident] during the history and exam. I discussed the case with the resident and agree with the findings and plan as documented in the note. Any exceptions or clarifications are listed here: [None] Documented By: Suman Burr MD, FACOG Resident Activity Tracking <Mayra Corona DO - Last Filed: 07/21/22 06:37> Resident Involvement: Resident Care Provided Care Provided: OB Delivery
[2022-07-21 06:27] LABS: Hemoglobin 12.8 g/dl (12.0-16.0); Mean Corpuscular Hgb Conc 35.6 g/dL (32.0-36.0); Mean Corpuscular Volume 92.8 fL (80.0-100.0); Mean Platelet Volume 10.5 fL (9.4-12.3); Platelet Count 169 K/uL (130-400); RDW Standard Deviation 46.8 fL (36.4-46.3); Red Blood Count 3.88 M/uL (3.93-5.22); White Blood Count 7.15 K/ul (4.8-10.8)
[2022-07-21] MEDS ORDERED: PRENATAL VITAMIN 1 TAB PO SCH (08:00)
[2022-07-21] MEDS: DOCUSATE SODIUM 100 MG CAP PO SCH (08:37)
[2022-07-21] MEDS: IBUPROFEN 600 MG TAB PO PRN ×2 (11:23→16:50)
[2022-07-21] MEDS ORDERED: bisacodyL 5 MG TABEC PO SCH (20:00)
== END 2022-07-21 17:00 | disposition home or self-care (01) | DRG 807 ==
LOC: 4S1 07:51 → 4E2 17:41

== ENCOUNTER 2025-04-03 07:56 | Inpatient (IN) ==
[2025-04-03] MEDS ORDERED: LIDOCAINE 1% LOCAL 20 ML VIAL INFIL PRN (08:10)
[2025-04-03] MEDS ORDERED: OXYTOCIN 30 UNITS/NSS 30 UNITS/500 ML BAG IV PRN (08:10)
[2025-04-03 08:34] LABS: Hematocrit (blood only) 36.6 % (37.0-47.0); Hemoglobin 12.6 g/dl (12.0-16.0); Mean Corpuscular Hemoglobin 31.7 pg (25.0-34.0); Mean Corpuscular Hgb Conc 34.4 g/dL (32.0-36.0); Mean Corpuscular Volume 92.2 fL (80.0-100.0); Mean Platelet Volume 9.9 fL (9.4-12.4); Platelet Count 208 K/uL (130-400); RDW Coefficient of Variation 14.7 % (11.5-14.5); RDW Standard Deviation 48.7 fL (36.4-46.3); Red Blood Count 3.97 M/uL (4.20-5.40)
[2025-04-03] MEDS ORDERED: SODIUM CHLORIDE 0.9% 100 ML IV PRN (08:47)
--- NOTE | 2025-04-03 08:50 | History & Physical Report ---
Date of Service April 03, 2025 Assessment & Plan (1) Encounter for supervision of normal intrauterine in multigravida, antepartum: (2) Elderly multigravida: (3) Obesity: Plan Jerica is a 39 y/o female currently at 40 3/7 WGA with an JAMES 03/30/25 as determined by LMP who is here for induction secondary to LGA. Her was complicated by AMA and LGA. Category 1 tracing; moderate FHT variability. - Start Pitocin to augment progression of labor - Consider amniotomy - Consult anesthesiology for epidural per pt request - NPO until delivery Admission and Anticipated Discharge Date Admission Date: April 03, 2025 History of Present Illness Primary Care Provider: Mayela Ness MD Jerica is a 39 y/o female currently at 40 3/7 WGA with an JAMES 03/30/25 as determined by LMP who is here for induction secondary to LGA. Her was complicated by AMA and LGA. Inconsistent contractions; regular movement; no fluid loss; no bloody show Had regular appointments with OB. Blood Type O Positive 09/04/24 Antibody Screen NEGATIVE 09/04/24 Hgb 12.1 g/dl (12.0-16.0) 02/20/25 Hct 35.8 % (37.0-47.0) L 02/20/25 MCV 90.9 fL (80.0-100.0) 09/04/24 Plt Count 285 K/uL (130-400) 09/04/24 Rubella IgG Antibody Immune (Immune) 09/04/24 RPR Nonreactive (Nonreactive) 12/16/21 Treponema pallidum Ab Negative (Negative) 02/20/25 Hep Bs Antigen Negative (Negative) 09/04/24 Hepatitis C Antibody Negative (Negative) 09/04/24 HIV 1&2 Ab/P24 Ag 4thGn Negative (Negative) 09/04/24 Glucose 1 Hr 50 gm 119 mg/dl (70-130) 02/20/25 OB Optional Labs: Chlamydia trachomatis RNA Not Detected (NotDetected) 09/04/24 Neisseria gonorrhoeae RNA Not Detected (NotDetected) 09/04/24 Labs Reviewed: declines genetics/carrier screening--ak gbs neg LABS today: Hbg 12.6 Hct 36.6% WBC 7.3 Platelets 208 Allergies Allergy/AdvReac Type Severity Reaction Status Date / Time No Known Allergies Allergy Verified 04/03/25 08:13 Home Medications Medication Instructions Recorded Confirmed Type prenat.vits,barrera,dzh-bpqc-vfovv tab PO 08/27/24 04/02/25 History Patient History Medical History (Updated 04/03/25 @ 09:02 by Ruth Thomas DO) (spontaneous vaginal delivery) x 6 UTI (urinary tract infection) History of chicken pox History of severe pre-eclampsia Umbilical hernia Surgical History H/O umbilical hernia repair (04/16/20) Open Umbilical and ventral Hernia Repair with mesh, incarcerated Dr. Rainey 04/16/2020 Hx of oral surgery wisdom teeth extr H/O dilation and curettage 03-20-15 Family History Grandmother (Maternal) Breast cancer Grandmother (Paternal) Breast cancer Father Heart disease Dyslipidemia Mother Hypertension Other Cancer Denies family history of Ovarian cancer Colorectal cancer Social History (Updated 04/03/25 @ 08:13 by Renay Toussaint, JOSE) Smoking Status: Never smoker Second Hand Exposure: No; Do You Dip or Chew Tobacco: No; Hx Alcohol Use: No Hx Substance Use: No Preferred Language: Tunisian Communication Ability: Effective Visual Impairment: No Limitations Hearing Ability: Normal Fac Engineer Required: No Beliefs That Will Affect Care: None marital status: marital status details: Garret Oneal (38) [phone] Current Living Situation: Spouse and Family Current Living Situation Comment: lives with spouse, 6 children, dogs current occupational status: unemployed current occupation: homemaker How many Children do You have: 5 Feels Safe at Home: Yes Safety Concerns: Feels Safe At This Time Childhood Exposure to Second-Hand Smoke: No Diet: regular caffeine: Yes during the past year weight has: remained stable Dental Care, Regularly: Yes Physical Activity Frequency: Daily Seatbelt Use: always Sunscreen Use: Yes Assistive Devices: None Review of Systems Denies fever, chills, sweats Denies shortness of breath, difficulty breathing, chest pain, palpitations, chest pressure. Denies breast pain. Denies dysuria. Denies headache or changes in vision. Physical Exam Physical Exam: General: Alert, oriented. No acute distress. Cardiac: Regular rate and rhythm, no murmurs/rubs/gallops. Respiratory: Clear to auscultation bilaterally a/p, no wheezes/rales/rhonchi. No increased work of breathing. Symmetrical chest rise. No respiratory distress. Abdomen: Gravid; Pelvic: Dilation 3cm; Effacement 50%; Station -[address] Gibson Lower Extremities: Trace lower extremity edema, nonpitting. No deep calf pain. Ashely's negative bilaterally Results & Data Vital Signs (Past 12 Hours) Vital Signs Temp Pulse Resp BP 04/03/25 08:39 110 H 136/90 04/03/25 08:11 36.8 C 18 04/03/25 08:08 112 H 154/86 H Code Status & VTE Plan VTE Prophylaxis Plan VTE Prophylaxis will be ordered: No Monitoring External Monitor External FHT and external uterine monitors used Supervising Physician Co-Signing Physician Notes Resident Physician Supervision Note: I interviewed and examined the patient. Discussed with Dr. Thomas and agree with findings and plan as documented in the note. Any exceptions or clarifications a re listed here: 39yo G7, grand multip presents for iol for postdates. cx favorable. efw 9-10. T&C. fetus category one. pitocin induction. arom when indicated, epidural on demand. anticipate . Documented By: Josy Gibson MD, FACOG Resident Activity Tracking Resident Involvement: Resident Care Provided Care Provided: Adult [facility]
[2025-04-03 08:52] LABS: Albumin Globulin Ratio 1.3 (0.9-2); Albumin Level 3.5 gm/dl (3.4-5.0); BUN Creatinine Ratio 18.2 (10-20); Bilirubin,Total 0.5 mg/dl (0.2-1.0); Calcium 8.8 mg/dl (8.6-10.3); Globulin 2.8 gm/dl (2.5-4.0); Potassium 3.6 mmol/L (3.5-5.1); Total Protein 6.3 gm/dl (6.0-8.3)
[2025-04-03] MEDS: OXYTOCIN 30 UNITS/NSS 30 UNITS/500 ML BAG IV PRN ×2 (09:17→16:30)
[2025-04-03] MEDS: LACTATED RINGER'S 1,000 ML IV PRN (09:17)
--- NOTE | 2025-04-03 14:01 | Labor Progress Brief Note ---
Date of Service April 03, 2025 Subjective Feeling some contractions, not painful Assessment & Plan (1) Encounter for induction of labor: Plan continue current plan. fetus categoty one. anticipate . Admission and Anticipated Discharge Date Admission Date: April 03, 2025 Physical Exam Physical Exam: cx--3.5/50/-2 toco--q3min, pit at 14 efm--120s wtih mod variability, accels to 150s, no decels arom--small clear fluid Results & Data Vital Signs (Past 12 Hours) Vital Signs Temp Pulse Resp BP 04/03/25 13:17 91 H 129/87 04/03/25 12:18 98 H 124/81 04/03/25 11:17 93 H 128/85 04/03/25 11:00 18 04/03/25 11:00 36.5 C 18 04/03/25 10:17 95 H 117/78 04/03/25 09:16 102 H 131/85 04/03/25 08:39 110 H 136/90 04/03/25 08:11 36.8 C 04/03/25 08:08 112 H 154/86 H Coding Level of Care Code None Diagnoses Encounter for induction of labor Z34.90
--- NOTE | 2025-04-03 16:14 | Delivery Summary ---
Vaginal Delivery Summary Date of Service April 03, 2025 Vaginal Delivery Summary and 2nd Degree LAC Pre-operative Diagnosis: at term iol Post-operative Diagnosis: same Procedure: pitocin iol arom repair of second degree laceration QBL: 100cc Anesthesia: local infiltration of lidocaine Procedure: The patient presented to labor and delivery for term iol. She was favorable and received pitocin and then arom when in a good pattern. She progressed to 7-8cm, spent about 5 minutes in knee/chest and then was involuntarily pushing. Found to be c/c/0. The patient pushed for two contractions to deliver a viable male infant in bony position. The anterior shoulder was immediately delivered and the infant was then delivered without difficulty. The baby was vigorous. The nose and mouth were bulb suctioned and the infant was placed in the maternal abdomen for drying and attention. Cord was clamped and cut at one minute of life. Cord blood and segment obtained. Placenta delivered spontaneous, intact with a three vessel cord. Cervix/s ulci/rectum were intact. A second degree perineal laceration was repaired in the normal standard fashion after infiltration with lidocaine. Hemostasis obtained with dilute pitocin and fundal massage. Apgars were 8/9. Mother and baby doing well at the end of the delivery. [facility] Vaginal Delivery Charge Delivery Type Details: and 2nd Degree LAC
[2025-04-03] MEDS ORDERED: bisacodyL 10 MG SUPP PR PRN (16:26)
[2025-04-03] MEDS ORDERED: HYDROCORTISONE ACETATE 25 MG SUPP PR PRN (16:26)
[2025-04-03] MEDS ORDERED: oxyCODONE/ACETAMINOPHEN 5mg/325mg TAB PO PRN (16:26)
[2025-04-03] MEDS: OXYTOCIN 30 UNITS/500ML NSS IV ONE (16:42)
[2025-04-03] MEDS: DIPHTHER/TETAN/PERTUS Vaccine (Tdap, Adol/Adult) 0.5mL IM ONE (16:43)
[2025-04-03] MEDS: BENZOCAINE 20% SPRY 85 APPLN/85 GM CAN EXT PRN (18:45)
[2025-04-03] MEDS: DOCUSATE SODIUM 100 MG CAP PO SCH (20:21)
[2025-04-04] MEDS: IBUPROFEN 600 MG TAB PO PRN (00:01)
[2025-04-04] MEDS: ACETAMINOPHEN 325 MG TAB PO PRN (00:01)
[2025-04-04 06:28] LABS: Hematocrit (blood only) 35.4 % (37.0-47.0); Hemoglobin 11.9 g/dl (12.0-16.0)
--- NOTE | 2025-04-04 06:41 | Obstetrical Progress Note ---
Date of Service April 04, 2025 Assessment & Plan (1) Encounter for assessment: Plan Doing well. meeting goals. would like d/c at 24 hours. Day #:: 1 Subjective Ambulation: ambulating normally Voiding: no voiding problems Passing Gas:: Yes Diet Tolerance:: regular diet Lochia:: Small Feeding Type:: breast feeding Feeling well Physical Exam Constitutional WD/WN, vitals as above Cardiovascular Extremities: + edema (tr); no calf tenderness Gastrointestinal (Abdomen) soft, nt, nd, ff/nt at u Psychiatric A+Ox3, euthymic affect Results & Data Vital Signs (Past 12 Hours) Vital Signs Temp Pulse Resp BP Pulse Ox O2 Del Method 04/04/25 04:30 37 C 82 16 137/80 98 Room Air 04/04/25 00:00 37 C 82 16 124/82 98 Room Air 04/03/25 20:00 37 C 88 18 130/83 97 Room Air
[2025-04-04] MEDS: PRENATAL VITAMIN 1 TAB PO SCH (08:18)
[2025-04-04 11:15] VITALS: TEMP 98.2
[2025-04-04 15:59] VITALS: BP 133/80; PULSE 80; RESP 16; O2SAT 99
[2025-04-04] MEDS ORDERED: bisacodyL 5 MG TABEC PO SCH (20:00)
== END 2025-04-04 16:35 | disposition home or self-care (01) | DRG 807 ==
LOC: 4S1 07:56 → 4E2 18:41